=== PATIENT | female | born 1970 | race Two or more races ===

== ENCOUNTER 2023-03-08 08:19 | Outpatient (CLI) | payer OTHER | END 2023-03-08 08:20 | disposition home or self-care (01) | LOC: NM 08:19 | PROVIDERS: ATTEND Internal Medicine | DX: C50.411 Malignant neoplasm of upper-outer quadrant of right female breast (principal); R94.8 Abnormal results of function studies of other organs and systems | CPT/HCPCS: 78306; A9503 ==

== ENCOUNTER 2023-06-15 07:48 | Outpatient (CLI) | payer OTHER | END 2023-06-15 07:49 | disposition home or self-care (01) | LOC: NM 07:48 | PROVIDERS: ATTEND Internal Medicine | DX: C50.911 Malignant neoplasm of unspecified site of right female breast (principal); R91.8 Other nonspecific abnormal finding of lung field; R90.82 White matter disease, unspecified | CPT/HCPCS: 70553; 71260; 74177; 78306; A9503 ==

== ENCOUNTER 2023-11-30 09:00 | Outpatient (CLI) | payer OTHER | END 2023-11-30 09:01 | disposition home or self-care (01) | LOC: NM 09:00 | PROVIDERS: ATTEND Internal Medicine | DX: C50.919 Malignant neoplasm of unspecified site of unspecified female breast (principal) | CPT/HCPCS: 78306; A9503 ==

== ENCOUNTER 2023-12-14 09:11 | Outpatient (CLI) | payer OTHER ==
[2023-12-14] MEDS ORDERED: Iopamidol 370 76% 100 ML VIAL ONE (10:52)
[2023-12-14] MEDS ORDERED: Magnevist 469MG/ML 20 ML VIAL ONE (11:16)
== END 2023-12-14 09:12 | disposition home or self-care (01) ==
LOC: CT 09:11
PROVIDERS: ATTEND Internal Medicine
DX: C50.919 Malignant neoplasm of unspecified site of unspecified female breast (principal)
CPT/HCPCS: 70553; 71260; 74177; 76377; A9579; Q9967

== ENCOUNTER 2024-06-08 08:53 | Outpatient (CLI) | payer OTHER ==
[2024-06-08] MEDS ORDERED: Iopamidol 370 76% 100 ML VIAL ONE (15:23)
== END 2024-06-08 08:54 | disposition home or self-care (01) ==
LOC: CT 08:53
PROVIDERS: ATTEND Internal Medicine
DX: C50.911 Malignant neoplasm of unspecified site of right female breast (principal)
CPT/HCPCS: 70553; 71260; 74177; 76376; Q9967